=== PATIENT | male | born 1990 | race African-American/Black ===

== ENCOUNTER 2021-02-06 12:08 | Outpatient (REF) | payer BC, SELFPAY | END 2021-02-06 12:09 | disposition home or self-care (01) | LOC: HO.LAB 12:08 | PROVIDERS: Visit Provider Internal Medicine | DX: Z20.822 Contact with and (suspected) exposure to COVID-19 (principal) | CPT/HCPCS: C9803; U0003; U0005 ==

== ENCOUNTER 2022-10-18 12:00 | Emergency (ER) | payer OTHER, SELFPAY ==
[2022-10-18 12:11] VITALS: BMI 34.0
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
[2022-10-18] MEDS: Ibuprofen 600 MG TABLET PO (13:23)
[2022-10-18 13:24] VITALS: BP 113/63; PULSE 55; RESP 18; TEMP 36.8; O2SAT 98
[2022-10-18] MEDS: Acetaminophen 325 MG TABLET 650 MG PO (13:24)
== END 2022-10-18 14:32 | disposition home or self-care (01) ==
PROVIDERS: Emergency Provider Internal Medicine
DX: S13.4XXA Sprain of ligaments of cervical spine, initial encounter (principal); S39.012A Strain of muscle, fascia and tendon of lower back, initial encounter; X58.XXXA Exposure to other specified factors, initial encounter; Y93.9 Activity, unspecified; Y92.410 Unspecified street and highway as the place of occurrence of the external cause; Y99.9 Unspecified external cause status
CPT/HCPCS: 99283; 99284

== ENCOUNTER 2024-04-27 08:54 | Outpatient (AMB) | payer OTHER, SELFPAY ==
--- OUTSIDE RECORDS SUMMARY | 2024-04-27 09:10 | XMS_ITS ---
Author Name [facility] Address [address] [place] [address] Care Team Providers Care Finance Analyst Name Role Phone JESSICA CAVANAUGH Primary Care Provider Unavailabl e Insurance Providers: All historical and current Section Date Range: From patient's date of to the date document was created. This section includes the names of all active insurance providers for the patient. Insurance Provider Type of Coverage Plan Name Start of Policy Coverage End of Policy Coverage Group Number Member ID Insurance Provider's Telephone Number Policy Huerta's Name Patient's Relationship to Policy Huerta BCBS [place] FEP PREFERRED PROVIDER ORGANIZAT ION (PPO) BASIC INDIV IDUAL September 20, 2018 [id number] JENIFER MONTESBRIANNA PATIENT [employer]-F EP BCBS PRESCRIPT ION FEP CAREM ARK September 20, 2018 [id number] RYANReggieJENIFER MIRIAMBRAINNA PATIENT MEDICAID MEDICAID [facility] [place] Oct 11, 2015 MEDICAI D [id number] JENIFER MONTESBRIANNA PATIENT Selected Encounter This section includes the information on record at [place] for the Encounter. Date/Time Encounter Type Encounter Description Reason Pro vider Source Dec 28, 2023 12:47 PM Outpatient Encounter TELEPHONE [facility] Encounter Template Text not used by [facility] Encounter Notes: All associated encounter notes This section contains the clinical notes associated to the Encounter. Date/Time Encounter Note(s) Provider Source Dec 28, 2023 12:47 PM OCCUPATIONAL MEDICINE TELEPHONE ENCOUNTER NOTE: LOCAL TITLE: TELEPHONE NOTE/TOXIC EXPOSURE FOLLOW-UP STANDARD TITLE: OCCUPATIONAL MEDICINE TELEPHONE ENCOUNTER NOTE DATE OF NOTE: DEC 28, 2023@12:47 ENTRY DATE: DEC 28, 2023@12:47:49 AUTHOR: LINH ROLLINS EXP COSIGNER: URGENCY: STATUS: COMPLETED LEFT MESSAGE WITH SPOUSE ENCOURAGING PARTICIPATION IN MARI SCREEN. UNABLE TO COMPLETE AT THIS TIME /es/ LINH ROLLINS NP [facility] Nurse Practitioner Signed: 12/28/2023 12:48 LINH ROLLINS [place] [facility]
--- NOTE | 2024-04-27 09:42 | MHC.OFFWIV ---
Intake Vital Signs 04/27/24 09:51 Height 5 ft 7 in Weight 190 lb BMI 29.8 BP 112/70 Blood Pressure Location Rt brachial Position Sitting Pulse 77 Pulse Source Pulse Oximeter Temp 101.2 F H Temp Source Oral Pulse Oximetry (%) 97 Oxygen Delivery Method Room Air Intake Visit Reasons: EP-sore throat, fever Intake Note: Patient here for sore throat and fever that started yesterday. Patient Tobacco Use Status: Never used Tobacco Allergies quinine Allergy (Severe, Verified 04/27/24 09:52) deafness Do you need a note to return to daycare/school/sports/work: Yes HPI EP-sore throat, fever HPI Details This is a 33-year-old male patient who presents today with a 2 day history of sore throat and fever. Denies any known exposure to sick contacts, however does have 3 younger children. Denies any other upper respiratory symptoms. He has been taking Tylenol at home. [facility] Social History Patient Tobacco Use Status: Never used Tobacco Review of Systems Const All systems reviewed & are unremarkable except as noted in HPI and below Physical Exam Vital Signs: Last Vital Signs Temp 101.2 F H 04/27/24 09:51 Pulse 77 04/27/24 09:51 BP 112/70 04/27/24 09:51 Pulse Ox 97 04/27/24 09:51 Oxygen Delivery Method Room Air 04/27/24 09:51 BMI result Body Mass Index 29.8 Const General: cooperative, healthy appearing and no acute distress Nutritional Appearance: average body habitus Limitations: no limitations HEENT Head: Yes normal to inspection Ears: hearing grossly normal bilaterally General nose exam: Normal external nose present Face and sinus: Yes normal facial exam Mouth: Normal oral and palatal mucosa present Throat: Yes posterior oropharynx abnormal ( Tonsillar erythema, and exudate) Neck Neck: Yes no lymphadenopathy Resp Effort & Inspection: normal respiratory effort Auscultation: clear to auscultation bilaterally Cardio Rate: regular rate Rhythm: regular rhythm Skin General skin exam: no rashes or lesions noted Extrem General: Yes capillary refill normal and Yes no clubbing, cyanosis or edema Psych Appearance: grossly normal Mental Status: mental status grossly normal Speech and movement: Normal speech and movement present Results AMB Rapid Strep AMB Rapid Strep Positive Last Edit by EMILY Molina on 04/27/24 10:16 Assessment & Plan Assessment & Plan (1) Streptococcal pharyngitis: Code(s): J02.0 - Streptococcal pharyngitis Plan: Will start on Pen-V 500mg BID for 10 days for strep pharyngitis. Reviewed indications, use, possible side effects of medication. Advised warm/saltwater gargles and Tylenol/ Motrin and lozenges as needed for comfort at home. Recommended discarding of toothbrush and close monitoring of children /other family members in the household for similar symptoms in the coming days. All questions were answered and patient verbalizes understanding and agrees to plan. Work note provided. Orders: Orders AMB Rapid Strep Screen Today Z13.9 - Encounter for screening, unspecified Medications: New penicillin V potassium Take one tablet twice a day for 10 days. 500 mg PO BID 10 days 20 tabs 0RF J02.0 - Streptococcal pharyngitis Coding Level of Care Code Est Pt Level 4 (54225) Diagnoses Streptococcal pharyngitis J02.0
[2024-04-27 09:51] VITALS: BP 112/70; PULSE 77; TEMP 38.4; O2SAT 97; BMI 29.8
== END 2024-04-27 10:27 | disposition home or self-care (01) ==
PROVIDERS: Visit Provider Nurse Practitioner Family
DX: J02.0 Streptococcal pharyngitis (principal); Z13.9 Encounter for screening, unspecified

== ENCOUNTER → 2024-04-27 08:54 | Outpatient (BNVA) | payer OTHER, SELFPAY | DX: J02.0 Streptococcal pharyngitis (principal) | CPT/HCPCS: 87880; 99212 ==